=== PATIENT | male | born 1945 ===

== ENCOUNTER → 2019-10-23 06:00 | Outpatient (REF) | payer MEDICARE, OTHER, SELFPAY | LOC: ANHLAB 06:00 | PROVIDERS: Visit Provider Nurse Practitioner | DX: C44.219 Basal cell carcinoma of skin of left ear and external auricular canal (principal) | CPT/HCPCS: 88305; 88331 ==

== ENCOUNTER 2023-01-25 14:37 | Outpatient (NON) | payer MEDICARE, OTHER, SELFPAY | END 2023-01-25 14:38 | disposition home or self-care (01) | LOC: ANHLAB 14:37 | PROVIDERS: Visit Provider Nurse Practitioner | DX: C44.42 Squamous cell carcinoma of skin of scalp and neck (principal) | CPT/HCPCS: 88305; 88331 ==